=== PATIENT | male | born 1975 | race Caucasian/White ===

== ENCOUNTER 2018-04-11 12:15 | Emergency (ER) | payer MEDICAID ==
--- NOTE | 2018-04-11 13:43 | ED Physician Chart ---
ED Chief Complaint/HPI - Patient Information Date Seen:: 04/11/18 Time Seen:: 12:30 Chief Complaint:: abnormal EKG History of Present Illness:: abnormal EKG. No symptoms. Vitals:: Vital Signs - 8 hr 04/11/18 12:30 Temp 98.8 F HR 90 RR 16 BP 114/72 O2 Sat % 95 Historian:: Other (caregiver) Review:: Transfer documents Reviewed ED Review of Systems - Review of Systems General/Constitutional: No fever, No chills, No weight loss, No weakness, No diaphoresis, No edema, No loss of appetite Skin: No skin lesions, No rash, No bruising Head: No headache, No light-headedness Eyes: No loss of vision, No pain, No diplopia ENT: No earache, No nasal drainage, No sore throat, No tinnitus Neck: No neck pain, No swelling, No thyromegaly, No stiffness, No mass noted Cardio Vascular: No chest pain, No palpitations, No PND, No orthopnea, No edema Pulmonary: No SOB, No cough, No sputum, No wheezing GI: No nausea, No vomiting, No diarrhea, No pain, No melena, No hematochezia, No constipation, No hematemesis G/U: No dysuria, No frequency, No hematuria Musculoskeletal: No bone or joint pain, No back pain, No muscle pain Endocrine: No polyuria, No polydipsia Psychiatric: No prior psych history, No depression, No anxiety, No suicidal ideation Hematopoietic: No bruising, No lymphadenopathy Allergic/Immuno: No urticaria, No angioedema Neurological: No syncope, No focal symptoms, No weakness, No paresthesia, No headache, No seizure, No dizziness, No confusion, No vertigo ED Past Medical History - Past Medical History Obtainable: No Past Medical History: Other (profound intellectual disability; cerebral palsy) ED Physical Exam - Physical Examination General/Constitutional: Awake Other Gen/Cons comments:: chronically ill appearing. head looks smaller than normal. prominent mandible. Head: Atraumatic Eyes: Lids, conjuctiva normal Neck: Nontender, No nuchal rigidity Respiratory: Nl effort/Exclusion, Clear to Auscultation Cardio Vascular: RRR, No murmur, gallop, rubs, NL S1 S2 Neuro/Psych: Mood normal Misc: Normal back ED Assessment - Assessment General Assessment: EKG from facility was read by computer as atrial fibrillation wtih a cmpeting junctional pacemaker; junctional ST depression, probably normal. This EKG was from 04/08/2018 at 05:03:07. my reading of this EKG is movement artifact, flipped t wave in V1. No ischemic changes. EKG performed here at 12:41:39 p.m. reveals normal sinus rhythm with a flipped t wave in AVR. ED Septic Shock - . Is Septic Shock (SBP<90, OR Lactate>4 mmol\L) present?: No - <6hrs of presentation: Vital Signs: Vital Signs - 8 hr 04/11/18 12:30 Temp 98.8 F HR 90 RR 16 BP 114/72 O2 Sat % 95 ED Reassessment (Disposition) - Reassessment Reassessment Condition:: Unchanged - Diagnosis Diagnosis:: Normal EKG in an asymptomatic patient Profound intellectual disability Cerebral palsy - Aftercare/Follow up Instructions Aftercare/Follow-Up Instructions:: Refer to Discharge Instructions Notes:: Follow up with physician at the facility. EKG was normal here at [facility]. - Patient Disposition Discharge/Transfer:: Home Condition at Disposition:: Stable, Unchanged
== END 2018-04-11 14:02 | disposition home or self-care (01) ==
LOC: ER 12:15
DX: G80.9 Cerebral palsy, unspecified (principal); F73 Profound intellectual disabilities
CPT/HCPCS: 93005; Z7502